=== PATIENT | female | born 1995 | race Caucasian/White ===

== ENCOUNTER 2016-10-10 01:49 | Emergency (ER) | payer OTHER ==
[~2016-10-10] VITALS: Ht 165.1 cm; Wt 68.0 kg
[2016-10-10 01:51] VITALS: BP 118/57; PULSE 64; RESP 16; TEMP 98; O2SAT 96
[2016-10-10] MEDS ORDERED: ZITH250T PO (02:25)
[2016-10-10] MEDS ORDERED: ALBU6.7H INH (02:25)
--- NOTE | 2016-10-10 02:25 | PD ---
HPI Chief Complaint: Cold / Flu Symptoms Time Seen by Provider: 02:20 Travel History International Travel<30 days: No Contact w/Intl Traveler<30days: No Traveled to known affect area: No History of Present Illness HPI 21-year-old white female on break from [place] presents emergency Department with complaints of cough and congestion for 1 month. She was seen on 2 prior occasions by her doctor. She states that approximately 3 weeks ago she was seen and was told that she had cold symptoms and takes subjective medications. She went back again last week and was given albuterol and steroids. She states that she has exercise-induced asthma. She has taken the steroids and her inhaler without improvement. She states that she left her inhaler at in [place]. She states that she is still coughing. She has had nasal congestion , sore throat, pleuritic chest wall pain, posttussive emesis and general malaise. She has come to the ER after the [employer] [facility] closed for evaluation. PFS Past Medical History Narrative Medical Exercise-induced asthma ?: Not LMP: 09-24-16 Past Surgical History Narrative Surgical Tonsillectomy Social History Alcohol Use: Yes Tobacco Use: No Allergies-Medications Reported Meds & Prescriptions Reported Meds & Active Scripts Active Proventil Hfa 6.7 GM Inh (Albuterol Sulfate) 90 Mcg/Act Aer 2 Puff INH Q4-6H PRN Zithromax (Azithromycin) 250 Mg Tab 250 Mg PO DIRECTED Take 2 tabs (500 mg) on day 1 then 1 tab daily x 4 days. Review of Systems Except as stated in HPI: all other systems reviewed are Neg General / Constitutional: No: Fever, Chills Eyes: No: Diploplia, Blurred Vision HENT: No: Headaches, Sore Throat Cardiovascular: Positive: Chest Pain or Discomfort, No: Irregular Rhythm Respiratory: Positive: Cough, Wheezing, Pleuritic Pain, No: Shortness of Breath Gastrointestinal: Positive: Other (posttussive emesis), No: Nausea, Diarrhea, Abdominal Pain Genitourinary: No: Dysuria, Hematuria Musculoskeletal: No: Myalgias, Arthralgias, Limited ROM Skin: No Rash Neurologic: No: Weakness, Headache Physical Exam Narrative GENERAL: Well-developed, well-nourished in no apparent distress. Nontoxic appearing. HEAD: Normocephalic, atraumatic. EYES: Pupils equal round and reactive. Extraocular motions intact. No scleral icterus. No injection or drainage. ENT: Nose clear. Throat without erythema, status post tonsillectomy. Uvula midline. Airway patent. NECK: Trachea midline. Supple, nontender, moves head freely. No central bony tenderness or spasm. CARDIOVASCULAR: Regular rate and rhythm without murmurs, gallops, or rubs. RESPIRATORY: Clear to auscultation. Breath sounds equal bilaterally. No wheezes , rales, or rhonchi. GASTROINTESTINAL: Abdomen soft, non-tender, nondistended. No hepato-splenomegaly , or palpable masses. No guarding. EXTREMITIES: No clubbing, cyanosis, or edema. No joint tenderness. BACK: Nontender without deformity. No flank tenderness. NEUROLOGICAL: Awake, alert and oriented x 3 .Cranial nerves grossly intact. Motor and sensory grossly within normal limits. Normal speech. Data Data Last Documented VS Vital Signs Date Time Temp Pulse Resp B/P Pulse Ox O2 Delivery O2 Flow Rate FiO2 10/10/16 01:51 98.0 64 16 118/57 96 Room Air Orders Chest, Pa & Lat (10/10/16 02:14) MDM Medical Decision Making Medical Screen Exam Complete: Yes Emergency Medical Condition: Yes Medical Record Reviewed: Yes Interpretation(s) Chest x-ray is negative. Differential Diagnosis MDM: High Differential diagnoses: Pneumonia, bronchitis, URI, asthma, RAD, legionnaire's disease, SARS, ARDS, influenza, bronchiolitis, RSV,PE,CHF Narrative Course This is bronchitis, reactive airway disease Diagnosis Primary Impression: Bronchitis Additional Impression: Reactive airway disease Patient Instructions: General Instructions Additional Instructions: Rest. Increase fluids. Tylenol and Advil. Robitussin-DM. Zithromax and albuterol. Followup with your DrMegan in one week. Return to the ER for any problems. Med/Other Pt SpecificInfo: Prescription(s) given Scripts Albuterol 6.7 GM Inh (Proventil Hfa 6.7 GM Inh)90 Mcg/Act Aer2 Puff INH Q4-6H PRN (SHORTNESS OF BREATH) #1 INHALER Prov:Trudy Thompson MD 10/10/16 Azithromycin (Zithromax)250 Mg Qkr429 Mg PO DIRECTED #6 TAB Take 2 tabs (500 mg) on day 1 then 1 tab daily x 4 days. Prov:Trudy Thompson MD 10/10/16 Disposition: 01 DISCHARGE HOME Condition: Stable Kunal Padron Oct 10, 2016 02:25
--- NOTE | 2016-10-10 02:51 | RADRPT ---
EXAM DATE/TIME: 10/10/2016 02:26 [facility] COMPARISON: No previous studies available for comparison. INDICATIONS : Cough. MEDICAL HISTORY : None. SURGICAL HISTORY : None. ENCOUNTER: Initial ACUITY: 1 week PAIN SCORE: 0/10 LOCATION: Bilateral chest FINDINGS: PA and lateral views of the chest demonstrate the lungs to be symmetrically aerated without evidence of mass, infiltrate or effusion. The cardiomediastinal contours are unremarkable. Osseous structure s are intact. CONCLUSION: No acute cardiopulmonary process. Bulmaro Delgado MD on October 10, 2016 at 2:49 Board Certified Radiologist. This report was verified electronically.
== END 2016-10-10 02:55 | disposition home or self-care (01) ==
LOC: NEPB 01:49
DX: J40 Bronchitis, not specified as acute or chronic (principal); J45.909 Unspecified asthma, uncomplicated; R09.81 Nasal congestion; R07.0 Pain in throat; R53.81 Other malaise; Z87.09 Personal history of other diseases of the respiratory system
CPT/HCPCS: 71020; 99283